=== PATIENT | female | born 2000 | race Caucasian/White ===

== ENCOUNTER 2024-08-08 15:33 | Outpatient (AMB) | payer BC, SELFPAY ==
--- NOTE | 2024-08-08 15:57 | A.OFFPC_ITS ---
Vital Signs 08/08/24 16:00 Weight 148 lb 0.2 oz BP 108/52 L Blood Pressure Location Lt brachial Pulse 69 Pulse Source Pulse Oximeter Temp 98.0 F Pulse Oximetry (%) 98 Intake Visit Reasons: New Patient Intake Note: Right side lower back dull pain noticeable started a couple of months ago not all the time mostly at work. Allergies No Known Allergies Allergy (Verified 08/08/24 16:17) Medication List - Last Reconciled 08/08/24 by Astrid Buchanan PA-C norethindrone ac-eth estradiol 1.5-30 mg-mcg () 1 tab PO DAILY HPI New Patient HPI Details The patient is a 23-year-old female presenting ablation new primary care provider and to discuss right flank pain. The pain is described as a recurring dull ache, located more towards the back with no radiation to the front. It occurs intermittently, lasting about 30 mi nutes each episode. The patient has not noticed any aggravating factors such as eating patterns and denies associated symptoms like unintentional weight changes or radiation of the pain. The pain was noted to occur at work, but not to the extent of incapacitation. The patient mentions a history of syncope, with the first episode occurring at age 16, and others roughly once annually, with the most recent episode occurring in 2023 during her senior year of college. Previously, the episodes were unexplainable, although some instances were associated with dehydration or fear. The patient recalls undergoing stress tests and being informed of a potential heart murmur, but no definitive diagnosis was provided. The patient has no chest pain, dyspnea, lower extremity swelling, or neurological symptoms such as dizziness, changes in vision, or numbness. Anemia has been noted, reportedly familial, but the patient describes it as not extreme. Social History - Graduate of [employer], [place], with a BS in Physiology. - Anemia in family history. [facility] Medical History (Updated 08/08/24 @ 16:57 by Astrid Buchanan PA-C) Heart murmur Family history of anemia Atypical syncope Cervical cancer screening Establishing care with new doctor, encounter for Right-sided back pain Right flank discomfort Questionnaire PHQ-9 Over the last 2 weeks, how often have you been bothered by any of the following problems? 1. Little interest or pleasure in doing things: not at all 2. Feeling down, depressed, or hopeless: not at all 3. Trouble falling or staying asleep, or sleeping too much: not at all 4. Feeling tired or having little energy: not at all 5. Poor appetite or overeating: not at all 6. Feeling bad about yourself - or that you are a failure or have let yourself or your family down: not at all 7. Trouble concentrating on things, such as reading the newspaper or watching television: not at all 8. Moving or speaking so slowly that other people could have noticed. Or the opposite - being so fidgety or restless that you have been moving around a lot more than usual: not at all 9. Thoughts that you would be better off or of hurting yourself in some way: not at all Total score: 0 Depression Screening Interpretation: Negative Depression Screening Done: Yes 49331 - PHQ-9 Billing: Yes Source: Developed by Drs. Josiah Mckee, Giovanna Aguilar, Jaden Root and colleagues, with an educational milton from [employer]. Thrive Questionnaire Date Thrive assessed: 08/08/24 I am a: Patient What is your living situation today?: I have a steady place to live Within the past 12 months, did the food you bought not last and you didn't have the money to get more?: Never true Within the past 12 months, did you worry whether your food would run out before you got money to buy more?: Never true Do you have trouble paying for medicines?: No Do you have trouble getting transportation to medical appointments?: No Do you have trouble paying your heating and electricity bill?: No Do you have trouble taking care of your child, family member or friend?: No Do you have trouble with day-to-day activities such as bathing, preparing meals, shopping, managing finances, etc.?: No Are you currently unemployed and looking for a job?: No Are you interested in more education?: Yes THRIVE Score: 0 AUDIT C Alcohol Use Questionnaire (AUDIT-C) 1. How often do you have a drink containing alcohol?: Monthly or less 2. How many drinks containing alcohol do you have on a typical day when you are drinking?: 1 or 2 3. How often do you have six or more drinks on one occasion?: Less than monthly Total Score: 2 Score Reviewed/Action Taken: No DAWIT-7 AMB Questionnaire DAWIT-7 Date DAWIT - 7 assessed: 08/08/24 Feeling nervous, anxious, or on edge: 1 = Several days Not being able to stop or control worryin = Not at all Worrying too much about different things: 0 = Not at all Trouble relaxin = Not at all Being so restless that it is hard to sit still: 0 = Not at all Becoming easily annoyed or irritable: 0 = Not at all Feeling afraid as if something awful might happen: 0 = Not at all Total DAWIT-7 score (0-4 normal; 5-9 mild; 10-14 moderate; 15-21 severe): 1 Source: Developed by Drs. Josiah Mckee, Giovanna Aguilar, Jaden Root and colleagues, with an educational milton from [employer]. DAWIT-7 Assessment Billing DAWIT-7 Assessment Tool: DAWIT-7 Assessment 06462 Review of Systems Const Details: - Cardiovascular: Reports history of syncope; Denies chest pain, leg swelling. - Respiratory: Denies shortness of breath. - Neurological: Reports vision changes on standing quickly; Denies dizziness, numbness. - Gastrointestinal: Reports recurring dull right flank pain; Denies unintentional weight change. - Hematologic: Reports known anemia. - Genitourinary: Denies presence of kidney stones in personal history or family history. Physical exam (Primary Care) Vital Signs: Last Vital Signs Temp 98.0 F 08/08/24 16:00 Pulse 69 08/08/24 16:00 BP 108/52 L 08/08/24 16:00 Pulse Ox 98 08/08/24 16:00 Care Plan Goal for BP management: <140/90 at Goal PHQ-9: PHQ-9 Score PHQ-9: Total score 0 08/08/24 16:11 Depression Screening Interpretation: Negative Thrive Assessment: Date of Thrive Assessment Date Thrive assessed 08/08/24 08/08/24 16:11 Const Other: Appearance: Alert. Oriented X3. No acute distress. Head: Normal external exam. Normocephalic. Atraumatic. Eyes: Pupils are equal, round, and reactive to light. Extraocular movements intact. Conjunctiva and sclera normal. Eyelids normal. Ears: External auditory canal normal. Tympanic membranes normal. Throat: Pharynx normal. Uvula midline. Moist mucous membranes. Neck: Normal inspection. Neck supple. Full range of motion. Cardiovascular: Normal heart rate and rhythm. Heart sound normal. No murmurs noted. Pulses normal throughout. Respiratory: No respiratory distress. Painless inspiration. Breath sounds normal. No wheezes/rales/rhonchi noted. Chest nontender. No accessory muscle usage noted or decreased air movement noted. Abdomen: Soft and nontender. Bowel sounds normal in all 4 quadrants. No distention noted. No organomegaly noted. No visible injury noted. Back: Dull, pulsating pain noted on the right side, more towards the back, occurring for about 30 minutes and then subsiding. No obvious CVA tenderness noted on my exam. Full range of motion noted. Skin: Skin warm and dry. Normal skin color. Normal skin turgor. No rashes/lesions/lacerations noted. Extremities: No lower extremity edema. Extremities exhibit normal range of motion. Extremities nontender. Neuro: Oriented X 3. No motor deficit. No sensory deficit. Reflexes normal. Coding Level of Care Code New Pt Level 4 (96038) Complex EM visit Add On G2211 Diagnoses Establishing care with new doctor, encounter for Z76.89 Atypical syncope R55 Cervical cancer screening Z12.4 Right-sided back pain M54.9 Right flank discomfort R10.9 Family history of anemia Z83.2 Heart murmur R01.1 Additional Codes PHQ-9 - 67817 - PHQ-9 Billing: Yes ([id number]) DAWIT-7 Assessment Billing - DAWIT-7 Assessment Tool: DAWIT-7 Assessment 05541 ([id number]) Assessment & Plan Assessment & Plan (1) Establishing care with new doctor, encounter for: Code(s): Z76.89 - Persons encountering health services in other specified circumstances Category: Medical (2) Atypical syncope: Code(s): R55 - Syncope and collapse Category: Medical Plan: Continue self-monitoring for syncope triggers such as dehydration. Seek further evaluation if episodes increase. (3) Cervical cancer screening: Code(s): Z12.4 - Encounter for screening for malignant neoplasm of cervix Category: Medical Plan: Will refer to photograph printer for cervical cancer screening. (4) Right-sided back pain: Code(s): M54.9 - Dorsalgia, unspecified Category: Medical Plan: Schedule abdominal ultrasound to identify possible underlying causes. (5) Right flank discomfort: Code(s): R10.9 - Unspecified abdominal pain Category: Medical Plan: Schedule abdominal ultrasound to identify possible underlying causes. (6) Family history of anemia: Code(s): Z83.2 - Family history of diseases of the blood and blood-forming organs and certain disorders involving the immune mechanism Category: Medical Plan: Perform a CBC to evaluate the anemia status. Recommend dietary intake adjustment based on results. (7) Heart murmur: Code(s): R01.1 - Cardiac murmur, unspecified Category: Medical Plan: Schedule echocardiogram to assess suspected heart murmur. Plan Plan Patient was informed and verbally consented to the use of an ambient scribe for clinic note documentation during this visit. 1. Syncope Continue self-monitoring for syncope triggers such as dehydration. Seek further evaluation if episodes increase. 2. Anemia Perform a CBC to evaluate the anemia status. Recommend dietary intake adjustment based on results. 3. Heart Murmur Potential Schedule echocardiogram to assess suspected heart murmur. 4. Right Flank Pain Schedule abdominal ultrasound to identify possible underlying causes. During our consultation, I explained the potential causes and evaluations for the patient's concerns. For anemia, routine blood work was advised to determine the current status, with dietary changes as needed based on results. The past heart murmur finding will be investigated through an echocardiogram. For right flank pain, we discussed the benefits of an ultrasound given her age and reduced radiation exposure, and the patient agreed. Referrals for PAP smear and cervical screenings will be arranged, given her age and lacking prior evaluations in this area, further considering no ongoing PROTOTYPE SEWER follow-ups. PSA: potential need for a CT only if further imaging is necessary. Orders: Orders US abdomen complete Today M54.9 - Dorsalgia, unspecified, R10.9 - Unspecified abdominal pain C Reactive Protein Today Z00.00 - Encounter for general adult medical examination without abnormal findings Comprehensive Success. Panel Fast Today Z00.00 - Encounter for general adult medical examination without abnormal findings Hemoglobin A1c Today Z00.00 - Encounter for general adult medical examination without abnormal findings Lipid Panel Today Z00.00 - Encounter for general adult medical examination without abnormal findings Liver Panel Today Z00.00 - Encounter for general adult medical examination without abnormal findings Magnesium Today Z00.00 - Encounter for general adult medical examination without abnormal findings Vitamin D 25-OH Total Today Z00.00 - Encounter for general adult medical examination without abnormal findings TSH reflex Free T4 Today Z00.00 - Encounter for general adult medical examination without abnormal findings Complete Blood Count Auto Diff Today Z00.00 - Encounter for general adult medical examination without abnormal findings Vitamin B12 and Folate Today Z00.00 - Encounter for general adult medical examination without abnormal findings Referrals ELEVATOR EXAMINER AND ADJUSTER Referral Z12.4 - Encounter for screening for malignant neoplasm of cervix Patient Instructions: - Monitor for any signs of syncope and stay hydrated. - Schedule an ultrasound for the right flank pain. - Eat iron-rich foods to manage known anemia. - Complete blood work after fasting for 10-12 hours. - Book a PAP smear and any necessary cervical screenings. - Follow up in six months or sooner if there are abnormal findings.
[2024-08-08 16:00] VITALS: BP 108/52; PULSE 69; TEMP 36.7; O2SAT 98
== END 2024-08-08 16:29 | disposition home or self-care (01) ==
LOC: HO.HMCSH 15:33
PROVIDERS: PCP Internal Medicine; Visit Provider Physician Assistant Medical
DX: Z76.89 Persons encountering health services in other specified circumstances (principal); R55 Syncope and collapse; Z12.4 Encounter for screening for malignant neoplasm of cervix; M54.9 Dorsalgia, unspecified; R10.9 Unspecified abdominal pain; Z83.2 Family history of diseases of the blood and blood-forming organs and certain disorders involving the immune mechanism; R01.1 Cardiac murmur, unspecified

== ENCOUNTER → 2024-08-08 15:33 | Outpatient (BNVA) | payer SELFPAY | PROVIDERS: PCP Internal Medicine; Visit Provider Physician Assistant Medical | DX: R10.9 Unspecified abdominal pain (principal); R55 Syncope and collapse; M54.9 Dorsalgia, unspecified; R01.1 Cardiac murmur, unspecified; Z83.2 Family history of diseases of the blood and blood-forming organs and certain disorders involving the immune mechanism | CPT/HCPCS: 96127 ==

== ENCOUNTER 2024-08-19 10:31 | Outpatient (REF) | payer BC, SELFPAY ==
[2024-08-19 11:06] LABS: MANUAL DIFF FLAG NO
[2024-08-19 11:19] LABS: Basophils Percent Auto 0.7 % (0-2); Eosinophils Absolute Auto 0.1 X10*3/uL (0.0-0.4); Eosinophils Percent Auto 2.5 % (0-4); Hematocrit 34.2 % (37.0-47.0); Hemoglobin 11.5 g/dl (12.0-16.0); Imm Gran Abs Auto 0.01 X10*3/uL (0.00-0.03); Imm Gran Pct Auto 0.2 % (0.0-0.4); Lymphocytes Absolute Auto 1.6 X10*3/uL (1.2-4.9); Lymphocytes Percent Auto 36.5 % (20-40); Mean Corpuscular HGB Conc 33.6 g/dl (31.0-35.0); Mean Corpuscular Hemoglobin 28.9 pg (27.0-33.0); Mean Corpuscular Volume 85.9 fL (80.0-98.0); Mean Platelet Volume 9.4 fL (9.4-12.3); Monocytes Absolute Auto 0.5 X10*3/uL (0.1-1.2); Monocytes Percent Auto 10.3 % (2-11); Neutrophils Absolute Auto 2.2 x10*3/uL (2.0-8.3); Neutrophils Percent Auto 49.8 % (45-73); Platelet Count 201 X10*3/uL (160-400); Red Blood Count 3.98 X10*6/uL (4.20-5.50); Red Cell Distribution Width 12.2 % (11.0-16.0); White Blood Count 4.4 X10*3/uL (4.8-10.8)
[2024-08-19 11:31] LABS: Estimated Average Glucose 105 mg/dL; Hemoglobin A1c % 5.3 % (<6.0)
[2024-08-19 11:51] LABS: Alanine Aminotransferase 65 U/L (0-31); Albumin Level 4.5 g/dL (3.5-5.0); Alkaline Phosphatase 41 U/L (39-117); Anion Gap 9 (12-20); Aspartate Amino Transferase 104 U/L (5-31); Bilirubin Direct 0.3 mg/dL (0.0-0.5); Bilirubin Total 0.8 mg/dL (0.0-1.0); Blood Urea Nitrogen 12 mg/dL (9-16); C Reactive Protein 0.15 mg/dL (< or = 0.50); Calcium 9.3 mg/dL (8.4-10.2); Carbon Dioxide 27 mmol/L (22-29); Chloride 106 mmol/L (96-108); Cholesterol 176 mg/dL (<200); Estimated Glomerular Filt Rate > 60; Glucose Fasting 85 mg/dL (60-99); HDL Cholesterol 57 mg/dL (>40); LDL Cholesterol Calculated 110 mg/dL (<100); Magnesium 1.9 mg/dL (1.6-2.6); Potassium 4.4 mmol/L (3.3-5.1); Sodium 138 mmol/L (135-145); Total Protein 7.3 g/dL (6.5-8.0); Triglycerides 47 mg/dL (<150)
[2024-08-19 12:07] LABS: Vitamin D 25-OH Total 13.4 ng/mL (>30)
[2024-08-19 12:20] LABS: Folate 9.8 ng/mL (> or = 4.0); Vitamin B12 458 pg/mL (200-900)
== END 2024-08-19 10:32 | disposition home or self-care (01) ==
LOC: HO.HMGCLDS 10:31
PROVIDERS: PCP Physician Assistant Medical; Visit Provider Physician Assistant Medical
DX: Z00.00 Encounter for general adult medical examination without abnormal findings (principal); Z13.6 Encounter for screening for cardiovascular disorders; Z13.1 Encounter for screening for diabetes mellitus
CPT/HCPCS: 36415; 80053; 80061; 80076; 82306; 82607; 82746; 83036; 83735; 84443; 85025; 86140

== ENCOUNTER 2024-08-23 06:09 | Outpatient (REF) | payer BC, SELFPAY ==
[2024-08-23 10:42] LABS: Hematocrit 33.7 % (37.0-47.0); Hemoglobin 11.2 g/dl (12.0-16.0); Mean Corpuscular HGB Conc 33.2 g/dl (31.0-35.0); Mean Corpuscular Hemoglobin 29.1 pg (27.0-33.0); Mean Corpuscular Volume 87.5 fL (80.0-98.0); Platelet Count 217 X10*3/uL (160-400); Red Blood Count 3.85 X10*6/uL (4.20-5.50); Red Cell Distribution Width 12.6 % (11.0-16.0); White Blood Count 4.3 X10*3/uL (4.8-10.8)
[2024-08-23 10:52] LABS: Alanine Aminotransferase 82 U/L (0-31); Albumin Level 4.6 g/dL (3.5-5.0); Alkaline Phosphatase 38 U/L (39-117); Anion Gap 9 (12-20); Aspartate Amino Transferase 113 U/L (5-31); Bilirubin Direct 0.2 mg/dL (0.0-0.5); Bilirubin Total 0.4 mg/dL (0.0-1.0); Blood Urea Nitrogen 22 mg/dL (9-16); Calcium 9.1 mg/dL (8.4-10.2); Carbon Dioxide 25 mmol/L (22-29); Chloride 106 mmol/L (96-108); Estimated Glomerular Filt Rate > 60; Glucose Random 89 mg/dL (60-115); Lipase 22 U/L (8-78); Sodium 136 mmol/L (135-145); Total Protein 7.1 g/dL (6.5-8.0)
== END 2024-08-23 06:10 | disposition home or self-care (01) ==
LOC: HO.HMGCLDS 06:09
PROVIDERS: Visit Provider Physician Assistant Medical
DX: Z00.00 Encounter for general adult medical examination without abnormal findings (principal); M54.9 Dorsalgia, unspecified; R10.9 Unspecified abdominal pain; D64.9 Anemia, unspecified; R74.01 Elevation of levels of liver transaminase levels
CPT/HCPCS: 36415; 80053; 82248; 83690; 85027

== ENCOUNTER 2024-11-21 08:24 | Outpatient (REF) | payer BC, SELFPAY ==
--- NOTE | ~2024-11-21 | US_ITS ---
EXAMINATION: US ABDOMEN HISTORY: R10.9 - Unspecified abdominal pain TECHNIQUE: Real-time grayscale ultrasound imaging of the abdomen was performed and images were reviewed. COMPARISON: There are no prior studies available for comparison. FINDINGS: Liver: The right lobe of the liver measures 15.4 cm in size. The left lobe of the liver measures 11.7 cm in size. The liver demonstrates normal homogeneous echotexture. No focal mass or intrahepatic biliary ductal dilatation is identified. There is normal hepatopedal flow in the portal vein. Gallbladder and biliary tree: The gallbladder is unremarkable, without evidence of calculi, wall thickening, or pericholecystic fluid. There is no sonographic Eric sign. The common bile duct is normal in caliber measuring 6 mm. Kidneys: The right kidney measures 10.6 cm in length. The left kidney measures 12.0 cm in length. The kidneys are unremarkable, without evidence of masses, hydronephrosis, or calculi. Pancreas: The pancreatic head, neck, and body are unremarkable. The pancreatic tail is obscured by bowel gas. Spleen: The spleen is normal in size and contour, measuring 9.6 cm in length. Abdominal aorta and inferior vena cava: The visualized portions of the abdominal aorta and inferior vena cava are normal in caliber. There is no free fluid in the abdomen. US/US abdomen complete IMPRESSION: Unremarkable abdominal ultrasound. Electronically signed by: Josiah Christina MD 11/21/2024 09:18 AM EDT
--- OUTSIDE RECORDS SUMMARY | 2024-11-21 09:25 | XMS_ITS | Clinical Summary ---
Author Organization [facility] Address [address] [place] [address] Phone Care Team Providers Care Engineering Documentation Specialist Name Role Phone Adriana Gomez MD Primary Care Provider Desiree vailable Social History Tobacco Use Types Packs/Day Years Used Date Smoking Tobacco: Never Assessed Education Answer Date Recorded Are you interested in more education? Not on beth e 07/10/2022 Are you concerned about learning? Not on file 07/10/2022 No 07/10/2022 No 07/10/2022 Digital Access Answer Date Recorded No 08/08/2022 No 08/08/2022 No 08/08/2022 Reliable internet access at home? Not on file 08/08/2022 Device with a working camera? Not on file Comments Unknown Sex and Gender Information Value Date Recorded Sex Assigned at Not on file Legal Sex Female 12:57 PM EST Gender Identity Not on file Sexual Orientation Not on file Plan of Treatment Health Maintenance Due Date Last Done Comments Adult Td,Tdap Booster 2001 DEPRESSION SCREENING 2013 SMOKING Hx and SMOKELESS TOBACCO SCREENING 2014 CHLAMYDIA SCREENING 2017 HEPATITIS C SCREENING 09/27/2019 HIV ONE-TIME SCREENING (18-6 5 YEARS) 09/27/2019 PAP SMEAR 2022 INFLUENZA VACCINE (#1) 2024 12/22/2019 COVID-19 VACCINE (2 - 2024-2 6 season) 2024 06/29/2020 HPV VACCINES Completed 10/18/2017, 12/22/2016, 10/15/2016 MENINGOCOCCAL VACCINES (ACWY) Completed 10/19/2018 HEPATITIS A VACCINES Completed 11/09/2019, 10/19/2018 MENINGOCOCCAL VACCINES (B) Completed 11/08, 10/19/2018 HIB VACCINES Aged Out No longer eligi ble based on patient's age to complete this topic PNEUMOCOCCAL VACCINES (0-49 years) Aged Out No longer eligible b ased on patient's age to complete this topic Medical Devices Not on file Insurance OUT OF [facility] [place] [id number] [facility] PPO [employer] [place] BLUE [employer] [place] [address] [employer]UE CROSS OUT OF STATE PPO BLUE CROSS OUT OF STATE PPO BLUE CROSS OUT OF STATE PPO Care Teams Engineering Documentation Specialist Relationship Specialty Start Date End Date Adriana Gomez MD PCP - General Pediatrics 01/28/20 Additional Source Comments The information contained in this document represents components of the legal health record. It is not the complete legal health record.[facility]
== END 2024-11-21 08:25 | disposition home or self-care (01) ==
LOC: HO.HMGCX 08:24
PROVIDERS: PCP Physician Assistant Medical; Visit Provider Physician Assistant Medical
DX: R10.9 Unspecified abdominal pain (principal); M54.9 Dorsalgia, unspecified
CPT/HCPCS: 76700

== ENCOUNTER → 2024-11-21 08:26 | Outpatient (BNV) | payer BC, SELFPAY | PROVIDERS: PCP Physician Assistant Medical; Visit Provider Radiology Diagnostic Radiology | DX: R10.9 Unspecified abdominal pain (principal) | CPT/HCPCS: 76700 ==

== ENCOUNTER 2025-02-21 13:24 | Outpatient (AMB) | payer BC, SELFPAY ==
--- NOTE | 2025-02-21 13:32 | MHC.OFFVIS ---
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 no concerns Cellophane Press Operator Required: No Information Interpreted: non-clinical & clinical Cork Insulator: Cork Insulator Present (Diana) Accompanied by: Self / Same As Patient Allergies No Known Allergies Allergy (Verified 02/21/25 13:36) Medication List - Last Reconciled 02/21/25 by Jojo Banks LPN norethindrone ac-eth estradiol 1.5-30 mg-mcg () 1 tab PO DAILY Is last menstrual period known: Yes Last menstrual period: 01/26/25 Do you need a note to return to daycare/school/sports/work: No HPI Comments Details: Patient is a premenopausal woman presenting for new patient annual examination. Cold Rolling Supervisor concerns: none. First Pap smear today. History of elevated LFTs. On approximately 2 years, prescribed by a provider at [facility] through a friend who works there. She denies any contraindications to control such as: migraines with aura, history of DVT or pulmonary emboli, high blood pressure, thrombolic disorders, Lupus, +ANN, breast cancer, or smoking. Currently is sexually active. She denies vaginal itching or irritation. STI screening offered; she accepts. She tries to eat healthy and stays active with exercise. 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 Sexual orientation: Straight/Heterosexual Gender identity: Male Female Reproductive History Menstrual Age of Menarche: 15 Date of last menstrual period: 01/26/25 control method: pills Total pregnancies: 0 Number of Living Children: 0 Review of Systems Const All systems reviewed & are unremarkable except as noted in HPI and below Reports as per HPI Eyes Reports no additional complaints ENT Reports no additional complaints Card Reports no additional complaints Resp Reports no additional complaints GI Reports as per HPI and Reports no additional complaints Reports as per HPI Musc Reports no additional complaints Skin/Breast Reports as per HPI Neuro Reports no additional complaints Psych Reports no additional complaints Endo Reports no additional complaints Mono/Lymph Reports no additional complaints Aller/Immun Reports no additional complaints Physical Exam Vital Signs: Last Vital Signs BP 100/72 02/21/25 13:34 BMI result Body Mass Index 25.6 Const General: cooperative, healthy appearing, no acute distress, well developed and alert Orientation/consciousness: patient oriented x3 HEENT Head: Yes normal to inspection Eyes General: appearance normal, both eyes and all related structures Neck Neck: Yes normal visual inspection Thyroid: Thyroid normal Chest Chest palpation & inspection: normal inspection of the chest and other (no puckering, dimpling, peau de orange, retraction, discharge, masses) Breast/axilla inspection: normal inspection of the breasts Breast/axilla palpation: normal palpation of the breasts Resp Effort & Inspection: normal respiratory effort GI Inspection: Yes normal to inspection Palpation (GI): Soft to palpation Rectal Exam - Female: deferred General: Yes bladder normal to palpation External Female Exam: normal external appearance and normal appearance of the urethra Speculum Exam - Vagina: normal appearance of the vagina, normal palpation and normal vaginal discharge Speculum Exam - Cervix: normal appearance of the cervix, normal palpation and Other cervical findings present (Bled slightly with Pap) Bimanual exam- vagina & uterus: normal bimanual exam, normal palpation, uterine size normal, bladder normal to palpation, normal palpation and non-tender Bimanual Exam- Adnexa, other: no masses Skin General skin exam: no rashes or lesions noted Rashes: no rashes Neuro General: patient oriented x3 Cognition (Neuro): normal cognition Extrem General: Yes normal to inspection Psych Attitude: cooperative Thought process: Normal thought process present Assessment & Plan Assessment & Plan (1) Encounter for well woman exam with routine gynecological exam: Code(s): Z01.419 - Encounter for gynecological examination (general) (routine) without abnormal findings Category: Medical (2) Elevated LFTs: Code(s): R79.89 - Other specified abnormal findings of blood chemistry Plan Discussed: Current recommendations for pap smears per ASCCP guidelines. Follow up with PCP regarding elevated LFTs and vitamin-D deficiency. Reviewed risk for control and its affect with liver functions. Await follow up for LFTs. Advised patient to correspond with the office when evaluation is complete. Breast awareness and periodic breast exams. Maintain a healthy lifestyle including a well balanced diet and routine exercise. Use condoms for STI and prevention. Patient verbalizes understanding and agrees to the plan of care. She was given opportunity to ask questions and all questions were answered to the best of my ability. RTO in one year for annual extension work director examination. This note is constructed using voice recognition software. While every effort has been made to ensure accuracy, sales service technician errors may have been included. Orders: Orders Bacterial Vaginosis Panel Today Z11.3 - Encounter for screening for infections with a predominantly sexual mode of transmission Pap Smear Today Z01.419 - Encounter for gynecological examination (general) (routine) without abnormal findings CT NG by PCR Vag/Cerv Today Z11.3 - Encounter for screening for infections with a predominantly sexual mode of transmission Coding Level of Care Code New Pt Prev Care 18-39yr([id number] Diagnoses Encounter for well woman exam with routine gynecological exam Z01.419 Elevated LFTs R79.89
[2025-02-21 13:34] VITALS: BP 100/72; BMI 25.6
== END 2025-02-21 14:27 | disposition home or self-care (01) ==
LOC: HO.HWS 13:25
PROVIDERS: PCP Physician Assistant Medical; Visit Provider Advanced Practice Midwife
DX: Z01.419 Encounter for gynecological examination (general) (routine) without abnormal findings (principal); R79.89 Other specified abnormal findings of blood chemistry
CPT/HCPCS: 99385; 99459

== ENCOUNTER 2025-02-21 13:24 | Outpatient (REF) | payer BC, SELFPAY ==
[2025-02-21 22:40] LABS: Bacterial Vaginosis PCR NEGATIVE (Negative); Candida Group PCR NOT DETECTED (Not Detect); Candida glab krusei PCR NOT DETECTED (Not Detect); Trichomonas vaginalis PCR NOT DETECTED (Not Detect)
[2025-02-21 23:23] LABS: CT PCR NOT DETECTED (Not Detect.); NG PCR NOT DETECTED (Not Detect.)
== END 2025-02-21 13:25 | disposition home or self-care (01) ==
LOC: HO.LNP 13:24
PROVIDERS: PCP Physician Assistant Medical; Visit Provider Advanced Practice Midwife
DX: Z01.419 Encounter for gynecological examination (general) (routine) without abnormal findings (principal); R79.89 Other specified abnormal findings of blood chemistry; Z20.2 Contact with and (suspected) exposure to infections with a predominantly sexual mode of transmission
CPT/HCPCS: 81515; 87491; 87591; 88175